=== PATIENT | male | born 1965 | race Caucasian/White ===

== ENCOUNTER 2016-10-20 16:05 | Emergency (ER) | payer BC ==
[2016-10-20 16:44] VITALS: BP 123/91
--- NOTE | 2016-10-20 17:32 | UC ---
Skin Complaint HPI - HPI Summary HPI Summary: pt c/o painful "sore" on right side of face just below right anglican. Also, c/o sores in mouth. - History of Current Complaint Chief Complaint: UCSkin Time Seen by Provider: 10/20/16 17:21 Stated Complaint: SORE ON FACE Hx Obtained From: Patient Onset/Duration: Gradual Onset, Lasting Days Skin Exposure Onset/Duration: Days Ago Onset Severity: Mild Current Severity: Mild Location: Discrete - right side face ust below right anglican, Face, Ear (Right) Character: Pain, Redness, Painful Aggravating: Touch Associated Signs & Symptoms: Positive: Drainage, Tenderness - Allergy/Home Medications Allergies/Adverse Reactions: Allergies Allergy/AdvReac Type Severity Reaction Status Date / Time Environmental Allergy Mild Congestion Uncoded 11/28/14 06:53 Home Medications: Home Medications Venlafaxine HCl [Effexor XR-] 10/20/16 [History] Review of Systems Constitutional: Negative Skin: Rash, Other - tenderness Eyes: Negative ENT: Negative Respiratory: Negative Cardiovascular: Negative Gastrointestinal: Negative Genitourinary: Negative Motor: Negative Neurovascular: Negative Musculoskeletal: Negative Neurological: Negative Psychological: Negative All Other Systems Reviewed And Are Negative: Yes PMH/Surg Hx/FS Hx/Imm Hx Previously Healthy: Yes Respiratory History Of: Reports: Asthma GI/ History Of: Reports: Kidney Stones - THIS IS FIRST TIME PT. HAS HAD A STONE, O/W HEALTHY Psychological History Of: Reports: Depression - Surgical History Surgical History: Yes Surgery Procedure, Year, and Place: hernia 1990, 1994 - Family History Known Family History: Positive: Other - positive PMH of URI - Social History Alcohol Use: Occasionally Substance Use Type: None Smoking Status (MU): Never Smoked Tobacco - Immunization History Most Recent Influenza Vaccination: 2015 Physical Exam Triage Information Reviewed: Yes Appearance: Well-Appearing Vital Signs: Initial Vital Signs Temp 98.2 F 10/20/16 16:37 Pulse 77 10/20/16 16:37 Resp 16 10/20/16 16:37 BP 123/91 10/20/16 16:37 Pulse Ox 99 10/20/16 16:37 Vital Signs Reviewed: Yes ENT Exam: Normal Neck exam: Normal Respiratory Exam: Normal Cardiovascular Exam: Normal Musculoskeletal Exam: Normal Neurological Exam: Normal Psychological Exam: Normal Skin Exam: Other Skin: Positive: rashes - vesicles, erythematous, tenderness; sores in mouth multiple ~ 4 scattered Course/Dx - Differential Diagnoses - Skin Complaint Differential Diagnoses: Impetigo, Varicella Zoster - Diagnoses Provider Diagnoses: Shingles Discharge - Discharge Plan Condition: Stable Disposition: HOME Prescriptions: ValACYclovir (*) [Valtrex 1 GM(*)] 1 gm PO BID #14 tab Patient Education Materials: Shingles (ED) Referrals: [facility] [Outside] No Primary Care Phys,NOPCP [Primary Care Provider] -
[2016-10-20] MEDS ORDERED: Acyclovir CAP* 200 MG PO ONE ×2 (18:05→18:06)
[2016-10-20] MEDS ORDERED: Acyclovir CAP* 200 MG ONE (18:11)
== END 2016-10-20 17:40 | disposition home or self-care (01) ==
LOC: UCEAST 16:05
DX: B02.9 Zoster without complications (principal); R03.0 Elevated blood-pressure reading, without diagnosis of hypertension
CPT/HCPCS: 99212; A9270-GY; G0463

== ENCOUNTER 2018-03-15 11:15 | Emergency (ER) | payer BC ==
[2018-03-15 11:31] VITALS: BP 117/83
--- NOTE | 2018-03-15 11:58 | UC ---
Eye Complaint HPI - HPI Summary HPI Summary: 53 yo male presents with left upper eyelid swelling for the last 2 days. He tells me that 2 days ago he woke up and he noticed his left upper eyelid was a little red and swollen - mildly tender. Yesterday and today seemed to get a bit worse. He does wear glasses, but no contacts. Denies injury or FB. No visual changes. - History of Current Complaint Chief Complaint: UCEye Stated Complaint: EYE COMPLAINT Time Seen by Provider: 03/15/18 11:57 Hx Obtained From: Patient Onset/Duration: Sudden Onset Timing: Constant Severity Initially: Mild Severity Currently: Mild Pain Intensity: 2 Pain Scale Used: 0-10 Numeric - Allergies/Home Medications Allergies/Adverse Reactions: Allergies Allergy/AdvReac Type Severity Reaction Status Date / Time Environmental Allergy Mild Congestion Uncoded 03/15/18 11:31 PMH/Surg Hx/FS Hx/Imm Hx - Additional Past Medical History Additional PMH: None Previously Healthy: Yes - Surgical History Surgical History: Yes Surgery Procedure, Year, and Place: hernia 1990, 1994 - Family History Known Family History: Positive: Other - positive PMH of URI - Social History Occupation: Employed Full-time Lives: With Family Alcohol Use: Occasionally Substance Use Type: None Smoking Status (MU): Never Smoked Tobacco - Immunization History Most Recent Influenza Vaccination: 2016 Review of Systems Constitutional: Negative Skin: Negative Eyes: Other - Upper eyelid swelling ENT: Negative Respiratory: Negative Cardiovascular: Negative Neurovascular: Negative Neurological: Negative Psychological: Negative All Other Systems Reviewed And Are Negative: Yes Physical Exam - Summary Physical Exam Summary: GENERAL: NAD. WDWN. No pain distress. SKIN: No rashes, sores, lesions, or open wounds. HEENT: Head: AT/NC Eyes: EOM intact. Conjunctiva clear without inflammation or discharge. LEFT eye: Upper eyelid with mild edema, erythema, and tenderness. No nodule or stye appreciated. Right eye: Normal. Nose: Nasal mucosa pink and moist. NTTP maxillary and frontal sinus. NECK: Supple. Nontender. No lymphadenopathy. CHEST: CTAB. No r/r/w. No accessory muscle use. Breathing comfortably and in no distress. CV: RRR. Without m/r/g. Pulses intact. Brisk cap refill. NEURO: Alert. CN II-XII grossly intact. PSYCH: Age appropriate behavior. Triage Information Reviewed: Yes Vital Signs: Initial Vital Signs Temp 98.7 F 03/15/18 11:28 Pulse 69 03/15/18 11:28 Resp 18 03/15/18 11:28 BP 117/83 03/15/18 11:28 Pulse Ox 99 03/15/18 11:28 Vital Signs Reviewed: Yes Eye Complaint Course/Dx - Course Course Of Treatment: Suspect underlying stye or blepharitis. Advised to apply warm compresses and will cover him with anbx eye drops in case of an infectious process. - Differential Dx/Diagnosis Provider Diagnoses: Blepharitis left eye Discharge - Sign-Out/Discharge Documenting (check all that apply): Patient Departure - Discharge Plan Condition: Stable Disposition: HOME Prescriptions: Polymyx/Trimethoprim OPTH* [Polytrim OPHTH*] 1 drop LEFT EYE QID #1 btl Patient Education Materials: Blepharitis (ED) Referrals: Shree Rainey PA [Primary Care Provider] - Additional Instructions: If you develop a fever, shortness of breath, chest pain, new or worsening symptoms - please call your PCP or go to the ED. - Billing Disposition and Condition Condition: STABLE Disposition: Home
== END 2018-03-15 12:16 | disposition home or self-care (01) ==
LOC: UCEAST 11:15
DX: H01.004 Unspecified blepharitis left upper eyelid (principal); Z91.09 Other allergy status, other than to drugs and biological substances
CPT/HCPCS: 99212; G0463